=== PATIENT | female | born 1940 | race Caucasian/White ===

== ENCOUNTER → 2018-02-20 10:18 | Outpatient (CLI) | payer MEDICARE, OTHER, SELFPAY ==
--- NOTE | 2018-02-20 | DI.MRI.S_ITS ---
PROCEDURE: MR CERVICAL SPINE WO CON INDICATIONS: neck pain TECHNIQUE: Noncontrast sagittal T1 spin echo and T2 fast spin echo, sagittal STIR, foraminal oblique sagittal T2 fast spin echo, and axial gradient echo or T2 fast spin echo through the cervical spine. COMPARISON: None. FINDINGS: Image quality: Excellent. Alignment and Curvature: There is loss of normal cervical lordosis. There is moderate reactive signal within the endplates adjacent to the C4-C5, C5-C6, and C6-C7 intervertebral discs. Bone Marrow: Marrow demonstrates normal overall signal. Spinal Cord: Visualized spinal cord has normal size and signal. No cerebellar tonsillar herniation. Paraspinous Soft Tissues: No paravertebral masses. Prevertebral soft tissues are normal in thickness. C2-C3: Disc desiccation and diffuse disc bulge. Bilateral facet and uncovertebral hypertrophy. Mild canal stenosis. Moderate left and mild right foraminal stenosis. C3-C4: Congenital canal stenosis. Disc desiccation and diffuse disc bulge. Bilateral facet and uncovertebral hypertrophy. Mild canal stenosis. Mild foraminal stenosis bilaterally. C4-C5: Congenital canal stenosis. Disc height loss and desiccation, as well as diffuse disc bulge, with superimposed right far lateral protrusion/osteophyte. Bilateral facet and uncovertebral hypertrophy. There is overall moderate to severe canal stenosis with minimal anterior cord flattening. Severe right greater than left foraminal stenosis is present. C5-C6: Congenital canal stenosis. Disc desiccation and diffuse disc bulge with superimposed left posterolateral protrusion. Bilateral facet and uncovertebral hypertrophy. Moderate canal stenosis. Minimal left cord flattening. Severe bilateral foraminal stenosis. C6-C7: Congenital canal stenosis. Disc desiccation and diffuse disc bulge with superimposed left far lateral protrusion. Bilateral facet and uncovertebral hypertrophy. Moderate canal stenosis. Severe left and mild right foraminal stenosis. C7-T1: Disc desiccation and diffuse disc bulge with superimposed small central protrusion. Bilateral facet hypertrophy. Mild canal stenosis. Mild foraminal stenosis bilaterally. IMPRESSION: 1. Diffuse congenital canal stenosis, with superimposed disc and facet disease, as well as uncovertebral hypertrophy. 2. Multilevel canal stenoses, worst at C4-C5 and C5-C6, where there is mild cord flattening present. 3. Multilevel foraminal stenoses, worst at C4-C5 on the right, at C5-C6 bilaterally, and at C6-C7 on the left. Dictated by: Ronan Alfaro M.D. on 02/20/2018 at 13:00 Approved by: Ronan Alfaro M.D. on 02/20/2018 at 13:05
== END ==
PROVIDERS: Family Provider Family Medicine; PCP Family Medicine; Visit Provider Orthopaedic Surgery
DX: M48.02 Spinal stenosis, cervical region (principal); M50.91 Cervical disc disorder, unspecified, high cervical region
CPT/HCPCS: 72141

== ENCOUNTER → 2018-04-09 10:20 | Outpatient (CLI) | payer MEDICARE, OTHER, SELFPAY ==
[2018-04-09 11:53] LABS: BUN Creatinine Ratio 21.3 (6-22); Blood Urea Nitrogen 17 mg/dL (7-17); Estimated Glomerular Filt Rate > 60.0 mL/min (>60)
== END ==
PROVIDERS: Family Provider Family Medicine; PCP Family Medicine; Visit Provider Urology
DX: N28.89 Other specified disorders of kidney and ureter (principal)
CPT/HCPCS: 36415; 82565; 84520

== ENCOUNTER → 2018-04-13 11:12 | Outpatient (CLI) | payer MEDICARE, OTHER, SELFPAY ==
--- NOTE | 2018-04-13 11:46 | DI.CT.S_ITS ---
PROCEDURE: CT ABDOMEN WO/W CON INDICATIONS: RENAL MASS TECHNIQUE: Optional 5 mm thick noncontrast images acquired from the diaphragm to the iliac crests. After the administration of intravenous contrast, 5 mm thick images again acquired from the diaphragm to the iliac crests in the arterial and urographic phases. 5 mm thick coronal and sagittal reformats were then acquired. For radiation dose reduction, the following was used: automated exposure control, adjustment of mA and/or kV according to patient size. COMPARISON: [facility], CT, ABDOMEN/PELVIS WITH CONTRAST, 12/09/2016, 2:00. [facility], US, RENAL COMPLETE, 07/25/2017, 7:29. FINDINGS: Image quality: Excellent. Lung bases: Lung shows bibasilar atelectasis. Heart size is normal. Small hiatal hernia. Genitourinary: There is a 1.4 x 1.7 cm exophytic hypodense mass in the lateral margin of the left kidney at the interpolar level. This is unchanged from the prior CT exam, not mentioned on the ultrasound study. It shows unenhanced attenuation of -74. 3 small cortical hypodensities in the right kidney, 2 lateral and one medial, also unchanged and hyperechoic on ultrasound. The dominant lesion is a cortical hypodense mass in the anterolateral lower pole of the right kidney. This measures 1.6 x 1.6 cm which is unchanged from prior CT it shows precontrast attenuation of -62 and was hyperechoic on ultrasound. Neither kidney shows nephrolithiasis. Following IV contrast, the larger lesion in the left kidney shows attenuation -59 and the right lower pole mass shows attenuation of -39. Both kidneys show additional tiny cortical hypodensities that are too small to characterize Other solid organs: Liver is normal in size and enhancement. Gallbladder is surgically absent. Biliary system is non dilated. Pancreas enhances normally. Spleen is normal in size and enhancement. No adrenal nodules. Peritoneum and bowel: Unenhanced bowel loops are normal in wall thickness and caliber. No free fluid or air. Nodes and vessels: No retroperitoneal or mesenteric adenopathy by size criteria. Aorta and inferior vena cava are normal in caliber. Bones: No suspicious bony lesions. No vertebral body compression fractures. Miscellaneous: No ventral hernias. IMPRESSION: 1. 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 Multiple additional small cortical lesions are likely additional angiomyolipomas or cortical cysts. 2. Small hiatal hernia. 3. Status post cholecystectomy. Normal common bile duct. Dictated by: Luiz Ortega M.D. on 04/13/2018 at 14:27 Approved by: Luiz Ortega M.D. on 04/13/2018 at 14:45
== END ==
PROVIDERS: Family Provider Family Medicine; PCP Family Medicine; Visit Provider Urology
DX: D17.71 Benign lipomatous neoplasm of kidney (principal); K44.9 Diaphragmatic hernia without obstruction or gangrene; Z90.49 Acquired absence of other specified parts of digestive tract
CPT/HCPCS: 74170; Q9967

== ENCOUNTER → 2018-05-14 12:36 | Outpatient (CLI) | payer MEDICARE, OTHER, SELFPAY ==
--- NOTE | 2018-05-14 12:37 | DI.US.S_ITS ---
PROCEDURE: US SOFT TISSUE HEAD AND NECK INDICATIONS: mass on neck TECHNIQUE: Real-time scanning was performed of the neck region of interest, with image documentation. COMPARISON: None. FINDINGS: A cluster of rounded, hypoechoic filling defects seen in the right submandibular gland region show an overall segment of 0.5 x 1.2 x 1.5 cm. The largest filling defect in the center of the cluster is 6 x 6 mm in size and has blood flow in the margin. IMPRESSION: Cluster of rounded hypodense filling defects in the right submandibular gland are indeterminate, chronic and presumed stable by history. This could be further evaluated by contrast-enhanced CT imaging of the soft tissues neck as clinically indicated. Dictated by: Luiz Ortega M.D. on 05/14/2018 at 16:39 Approved by: Luiz Ortega M.D. on 05/14/2018 at 16:43
== END ==
PROVIDERS: Family Provider Family Medicine; PCP Family Medicine; Visit Provider Family Medicine
DX: R22.1 Localized swelling, mass and lump, neck (principal)
CPT/HCPCS: 76536

== ENCOUNTER → 2018-07-24 12:41 | Outpatient (CLI) | payer MEDICARE, OTHER, SELFPAY ==
[2018-07-24 12:59] LABS: Hemoglobin 13.9 g/dL (12.0-16.0); Mean Corpuscular Hemoglobin 31.5 PG (26-34); Mean Corpuscular Volume 92.7 fL (80-100); Platelet Count 270 X10^3/uL (150-400); Red Blood Cell Count 4.42 X10^6/uL (4.0-5.2); Red Cell Distribution Width 13.2 % (11.6-14.8)
[2018-07-24 13:08] LABS: Alanine Aminotransferase 24 IU/L (9-52); Albumin 4.3 g/dL (3.5-5.0); Albumin Globulin Ratio 1.5 (1.0-2.8); Alkaline Phosphatase 84 U/L (38-126); Aspartate Aminotransferase 20 IU/L (14-36); Bilirubin Total 0.6 mg/dL (0.2-1.3); Blood Urea Nitrogen 18 mg/dL (7-17); Calcium 9.3 mg/dL (8.4-10.2); Carbon Dioxide 30 mmol/L (22-32); Chloride 103 mmol/L (98-107); Cholesterol 149 mg/dL (140-199); Estimated Glomerular Filt Rate > 60.0 mL/min (>60); Globulin 2.8 g/dL (1.7-4.1); Glucose 104 mg/dL (80-110); HDL Cholesterol 31 mg/dL (40-60); HEMOLYSIS < 15 (0-50); LDL Cholesterol Calculated 86 mg/dL (<100); Potassium 5.2 mmol/L (3.4-5.1); Sodium 144 mmol/L (137-145); Total Protein 7.1 g/dL (6.3-8.2); Triglycerides 162 mg/dL (35-150)
[2018-07-24 13:52] LABS: Thyroid Stimulating Hormone 1.16 uIU/mL (0.47-4.68)
[2018-07-24 15:55] LABS: Bilirubin Urine UA NEGATIVE (NEGATIVE); Color Urine UA YELLOW; Glucose Urine UA NEGATIVE (Normal); Ketones Urine UA NEGATIVE (NEGATIVE); Leukocyte Esterase Urine UA 1+ (NEGATIVE); Nitrite Urine UA NEGATIVE (Negative); Occult Blood Urine UA 2+ (Negative); Protein Urine UA NEGATIVE (Negative); Urobilinogen Urine UA 0.2 E.U./dL (0.2)
[2018-07-24 16:12] LABS: Amorphous Sediment Urine 1+; Appearance Urine UA Slightly Cloudy; RBC Urine 1-5/HPF (0-5/HPF); Squamous Epithelial Cell Urine 1-5 /HPF; Transitional Epi Cells Urine 0-1/HPF (0-5/HPF); WBC Urine 5-10/HPF (0-5/HPF)
[2018-07-24 16:13] LABS: Bacteria Urine Few (2-10); Culture Indicated Urine Specimen Cultured; Mucus Urine 1+ (Negative)
== END ==
PROVIDERS: PCP Family Medicine; Visit Provider Family Medicine
DX: E78.2 Mixed hyperlipidemia (principal); I10 Essential (primary) hypertension; I25.10 Atherosclerotic heart disease of native coronary artery without angina pectoris; I48.2 Chronic atrial fibrillation; Z51.81 Encounter for therapeutic drug level monitoring; Z79.01 Long term (current) use of anticoagulants
CPT/HCPCS: 36415; 80053; 80061; 81001; 84443; 85027; 87086

== ENCOUNTER → 2019-01-18 16:43 | Outpatient (CLI) | payer MEDICARE, OTHER, SELFPAY ==
--- NOTE | 2019-01-18 16:44 | DI.US.S_ITS ---
PROCEDURE: US RENAL COMPLETE INDICATIONS: RENAL MASS TECHNIQUE: Real-time scanning was performed of the kidneys and bladder, with image documentation. COMPARISON: [facility], US, RENAL COMPLETE, 07/25/2017, 7:29. [facility], CT, CT ABDOMEN WO/W CON, 04/13/2018, 11:21. FINDINGS: Kidneys: Kidneys are normal in size. Right kidney measures 11.0 cm long; left kidney measures 10.7 cm long. Right renal cortical thickness is 1.3 cm; left renal cortical thickness is 1.4 cm. Renal cortical echotexture is normal. No hydronephrosis or nephrolithiasis. Multiple rounded echogenic foci again seen above the right kidney, largest measuring 2.4 x 2.2 x 2.0 cm. Echogenic focus also present involving the mid aspect of the left kidney measuring 1.9 x 1.7 x 2.3 cm. Bladder: Pre-void bladder volume is 127 mL. Post-void residual is 87 mL. Pre-void images demonstrate no intraluminal masses or stones. On pre-void images, right ureteral jets are noted with color Doppler interrogation. (Of note, ureteral jets may not be detectable in up to 25% of cases due to insufficient differences in specific gravity between ureteral and bladder urine). Miscellaneous: No free pelvic fluid. IMPRESSION: 1. Cortical echogenic masses redemonstrated bilaterally similar to prior CT scan likely representing angiomyolipomas. Dictated by: Lawrence MADISON Interpreted: Braydon Zacarias MD on 01/19/2019 at 10:10 Approved by: Braydon Zacarias M.D. on 01/19/2019 at 11:17
== END ==
PROVIDERS: Family Provider Family Medicine; PCP Family Medicine; Visit Provider Urology
DX: N28.89 Other specified disorders of kidney and ureter (principal)
CPT/HCPCS: 76770

== ENCOUNTER → 2019-03-05 08:38 | Outpatient (CLI) | payer MEDICARE, OTHER, SELFPAY ==
[2019-03-05 09:26] LABS: Alanine Aminotransferase 12 IU/L (9-52); Albumin 3.7 g/dL (3.5-5.0); Albumin Globulin Ratio 1.4 (1.0-2.8); Alkaline Phosphatase 74 U/L (38-126); Aspartate Aminotransferase 15 IU/L (14-36); Bilirubin Total 0.6 mg/dL (0.2-1.3); Blood Urea Nitrogen 16 mg/dL (7-17); Calcium 9.2 mg/dL (8.4-10.2); Carbon Dioxide 31 mmol/L (22-32); Chloride 102 mmol/L (98-107); Cholesterol 149 mg/dL (140-199); Estimated Glomerular Filt Rate > 60.0 mL/min (>60); Globulin 2.6 g/dL (1.7-4.1); Glucose 100 mg/dL (80-110); HDL Cholesterol 30 mg/dL (40-60); HEMOLYSIS < 15 (0-50); LDL Cholesterol Calculated 84 mg/dL (<100); Potassium 3.8 mmol/L (3.4-5.1); Sodium 139 mmol/L (137-145); Total Protein 6.3 g/dL (6.3-8.2); Triglycerides 174 mg/dL (35-150)
== END ==
PROVIDERS: PCP Family Medicine; Visit Provider Family Medicine
DX: E78.2 Mixed hyperlipidemia (principal); I10 Essential (primary) hypertension
CPT/HCPCS: 36415; 80053; 80061

== ENCOUNTER → 2019-05-04 09:32 | Outpatient (CLI) | payer MEDICARE, OTHER, SELFPAY ==
[2019-05-06 14:20] LABS: Fecal Immunochemical Test NOT DETECTED (NOT DETECTED)
== END ==
PROVIDERS: PCP Family Medicine; Visit Provider Family Medicine
DX: Z12.11 Encounter for screening for malignant neoplasm of colon (principal)
CPT/HCPCS: 82274

== ENCOUNTER → 2019-07-12 10:43 | Outpatient (CLI) | payer MEDICARE, OTHER, SELFPAY ==
--- NOTE | 2019-07-12 | DI.US.S_ITS ---
PROCEDURE: US RENAL COMPLETE INDICATIONS: ANGIOMYOLIPOMAS TECHNIQUE: Real-time scanning was performed of the kidneys and bladder, with image documentation. COMPARISON: [facility], , US RENAL COMPLETE, 01/18/2019, 16:58. FINDINGS: Kidneys: Kidneys are normal in size. Right kidney measures 10.5 cm long; left kidney measures 11.3 cm long. Right renal cortical thickness is one point there cm; left renal cortical thickness is 1.2 cm. Renal cortical echotexture is normal. No hydronephrosis or nephrolithiasis. Accounting for differences in imaging technique, stable sonographic appearance of echogenic renal masses compatible with angiomyolipomas. On the right, there is a 0.7 x 0.7 x 0.7 cm mid renal echogenic mass and a 2.4 x 2.3 x 1.9 cm inferior right renal echogenic mass. On the left, there is a 2.1 x 2.0 x 2.2 cm echogenic mass involving the mid/medial aspect of the left kidney. No new masses are identified. Bladder: Pre-void bladder volume is 282 mL. Post-void residual is 219 mL. Pre-void images demonstrate no intraluminal masses or stones. On pre-void images, the bilateral ureteral jets were not noted with color Doppler interrogation. (Of note, ureteral jets may not be detectable in up to 25% of cases due to insufficient differences in specific gravity between ureteral and bladder urine). Miscellaneous: No free pelvic fluid. IMPRESSION: Accounting for slight differences in imaging technique, stable appearance and size of cortical bilateral echogenic renal masses likely representing angiomyolipomas with 2 noted on the right and one on the left. Dictated by: Joe Chow M.D. on 07/12/2019 at 13:34 Approved by: Joe Chow M.D. on 07/12/2019 at 13:49
== END ==
PROVIDERS: PCP Family Medicine; Visit Provider Urology
DX: D17.71 Benign lipomatous neoplasm of kidney (principal)
CPT/HCPCS: 76770

== ENCOUNTER → 2019-10-06 09:34 | Outpatient (CLI) | payer MEDICARE, OTHER, SELFPAY ==
[2019-10-06 10:20] LABS: Add Manual Diff / Slide Review NO; Basophils Absolute Auto 100 /uL (0-100); Basophils Percent Auto 0.8 % (0-2); Eosinophils Absolute Auto 300 /uL (0-450); Eosinophils Percent Auto 4.7 % (2-4); Hematocrit 39.5 % (36-46); Hemoglobin 13.4 g/dL (12.0-16.0); Lymphocytes Absolute Auto 2000 /uL (1100-4500); Lymphocytes Percent Auto 28.7 % (25-40); Mean Corpuscular HGB Conc 33.9 % (30-36); Mean Corpuscular Hemoglobin 31.7 PG (26-34); Mean Corpuscular Volume 93.3 fL (80-100); Monocytes Absolute Auto 400 /uL (0-900); Monocytes Percent Auto 5.3 % (3-14); Neutrophils Absolute Auto 4300 /uL (1500-7000); Neutrophils Percent Auto 60.5 % (50-75); Platelet Count 278 X10^3/uL (150-400); Red Blood Cell Count 4.23 X10^6/uL (4.0-5.2); Red Cell Distribution Width 13.5 % (11.6-14.8); White Blood Cell Count 7.1 X10^3/uL (4.5-11.0)
[2019-10-06 10:34] LABS: Alanine Aminotransferase 13 IU/L (<35); Albumin Globulin Ratio 1.3 (1.0-2.8); Alkaline Phosphatase 74 U/L (38-126); Aspartate Aminotransferase 21 IU/L (14-36); BUN Creatinine Ratio 17.5 (6-22); Bilirubin Total 0.6 mg/dL (0.2-1.3); Blood Urea Nitrogen 14 mg/dL (7-17); Calcium 9.4 mg/dL (8.4-10.2); Carbon Dioxide 30 mmol/L (22-32); Chloride 106 mmol/L (98-107); Estimated Glomerular Filt Rate > 60.0 mL/min (>60); Glucose 97 mg/dL (80-110); HEMOLYSIS < 15 (0-50); Lipase 125 U/L (23-300); Potassium 4.3 mmol/L (3.4-5.1); Sodium 141 mmol/L (137-145)
[2019-10-06 11:05] LABS: Thyroid Stimulating Hormone 1.49 uIU/mL (0.47-4.68)
[2019-10-06 12:08] LABS: Appearance Urine UA SL CLOUDY; Bilirubin Urine UA NEGATIVE (NEGATIVE); Color Urine UA YELLOW; Glucose Urine UA NEGATIVE (Negative); Ketones Urine UA NEGATIVE (NEGATIVE); Leukocyte Esterase Urine UA 1+ (NEGATIVE); Nitrite Urine UA POSITIVE (Negative); Occult Blood Urine UA 3+ (Negative); Protein Urine UA NEGATIVE (Negative); Specific Gravity Urine UA 1.025 (1.000-1.035); Urobilinogen Urine UA 0.2 E.U./dL (0.2)
[2019-10-06 12:09] LABS: pH Urine UA 5.5 (4.5-8.0)
[2019-10-06 12:15] LABS: Bacteria Urine Many (>30); Culture Indicated Urine Cult Not Indicated; RBC Urine 5-10/HPF (0-5/HPF); Squamous Epithelial Cell Urine 5-10 /HPF (0-5/HPF); WBC Urine 5-10/HPF (0-5/HPF)
== END ==
PROVIDERS: PCP Family Medicine; Visit Provider Family Medicine
DX: Z51.81 Encounter for therapeutic drug level monitoring (principal); E78.2 Mixed hyperlipidemia; I10 Essential (primary) hypertension
CPT/HCPCS: 36415; 80053; 81003; 81015; 83690; 84443; 85025

== ENCOUNTER → 2019-10-18 10:54 | Outpatient (CLI) | payer MEDICARE, OTHER, SELFPAY ==
[2019-10-18 13:11] LABS: Appearance Urine UA CLEAR; Bilirubin Urine UA NEGATIVE (NEGATIVE); Color Urine UA YELLOW; Glucose Urine UA NEGATIVE (Negative); Ketones Urine UA NEGATIVE (NEGATIVE); Leukocyte Esterase Urine UA TRACE (NEGATIVE); Nitrite Urine UA POSITIVE (Negative); Occult Blood Urine UA 2+ (Negative); Protein Urine UA NEGATIVE (Negative); Urobilinogen Urine UA 0.2 E.U./dL (0.2)
[2019-10-18 13:56] LABS: RBC Urine 1-5/HPF (0-5/HPF); Squamous Epithelial Cell Urine 1-5 /HPF (0-5/HPF); WBC Urine 5-10/HPF (0-5/HPF)
[2019-10-18 13:57] LABS: Amorphous Sediment Urine 1+; Bacteria Urine Few (2-10); Culture Indicated Urine Specimen Cultured; Mucus Urine 1+ (Negative)
== END ==
PROVIDERS: PCP Family Medicine; Visit Provider Family Medicine
DX: N39.0 Urinary tract infection, site not specified (principal)
CPT/HCPCS: 81003; 81015; 87077; 87086; 87186

== ENCOUNTER → 2020-01-07 11:05 | Outpatient (CLI) | payer MEDICARE, OTHER, SELFPAY ==
--- NOTE | 2020-01-07 11:28 | DI.RAD.S_ITS ---
PROCEDURE: XR CHEST 2V INDICATIONS: productive cough TECHNIQUE: 2 views of the chest were acquired. COMPARISON: [facility], CHEST 2 VIEW, 01/27/2017, 10:27. [facility], CHEST 1 VIEW, 07/16/2015, 4:26. FINDINGS: Surgical changes and devices: None. Lungs and pleura: Lungs are clear. No pleural effusions or pneumothorax. Mediastinum: Mediastinal contours are normal. Heart size is normal. Bones and chest wall: No suspicious bony abnormalities. Soft tissues appear unremarkable. IMPRESSION: Normal for age, source of current productive cough symptoms is not seen. Dictated by: Kenroy Patterson M.D. on 01/07/2020 at 13:57 Approved by: Kenroy Patterson M.D. on 01/07/2020 at 13:57
[2020-01-07 12:21] LABS: Appearance Urine UA CLOUDY; Bilirubin Urine UA NEGATIVE (NEGATIVE); Color Urine UA YELLOW; Glucose Urine UA NEGATIVE (Negative); Ketones Urine UA NEGATIVE (NEGATIVE); Leukocyte Esterase Urine UA 2+ (NEGATIVE); Nitrite Urine UA NEGATIVE (Negative); Occult Blood Urine UA 3+ (Negative); Protein Urine UA NEGATIVE (Negative); Specific Gravity Urine UA <=1.005 (1.000-1.035); Urobilinogen Urine UA 0.2 E.U./dL (0.2)
[2020-01-07 12:24] LABS: pH Urine UA 6.5 (4.5-8.0)
[2020-01-07 13:43] LABS: Bacteria Urine Many (>30); RBC Urine 1-5/HPF (0-5/HPF); Squamous Epithelial Cell Urine 1-5 /HPF (0-5/HPF); WBC Urine >100/HPF (0-5/HPF)
[2020-01-07 13:44] LABS: Culture Indicated Urine Specimen Cultured
== END ==
PROVIDERS: PCP Family Medicine; Referring Provider Nurse Practitioner; Visit Provider Nurse Practitioner
DX: N94.9 Unspecified condition associated with female genital organs and menstrual cycle (principal); R05 Cough; R30.0 Dysuria
CPT/HCPCS: 71046; 81001; 87077; 87086; 87186; 87210

== ENCOUNTER → 2020-01-31 09:56 | Outpatient (CLI) | payer MEDICARE, OTHER, SELFPAY ==
[2020-02-02 04:31] LABS: COVID19 Sendout Not Detected (Not Detected)
== END ==
PROVIDERS: PCP Family Medicine; Visit Provider Registered Nurse
DX: R05 Cough (principal)
CPT/HCPCS: 87635

== ENCOUNTER → 2020-06-10 08:12 | Outpatient (CLI) | payer MEDICARE, OTHER, SELFPAY ==
[2020-06-10 09:46] LABS: Add Manual Diff / Slide Review NO; Basophils Absolute Auto 0 /uL (0-100); Basophils Percent Auto 0.6 % (0-2); Eosinophils Absolute Auto 300 /uL (0-450); Eosinophils Percent Auto 4.8 % (2-4); Hematocrit 39.7 % (36-46); Hemoglobin 13.3 g/dL (12.0-16.0); Lymphocytes Absolute Auto 1900 /uL (1100-4500); Lymphocytes Percent Auto 28.7 % (25-40); Mean Corpuscular HGB Conc 33.5 % (30-36); Mean Corpuscular Hemoglobin 30.9 PG (26-34); Mean Corpuscular Volume 92.3 fL (80-100); Monocytes Absolute Auto 400 /uL (0-900); Monocytes Percent Auto 6.6 % (3-14); Neutrophils Absolute Auto 3900 /uL (1500-7000); Neutrophils Percent Auto 59.3 % (50-75); Platelet Count 264 X10^3/uL (150-400); Red Cell Distribution Width 13.5 % (11.6-14.8); White Blood Cell Count 6.6 X10^3/uL (4.5-11.0)
[2020-06-10 09:57] LABS: Hemoglobin A1C% w Est Avg Glu 5.7 % (4.0-6.0)
[2020-06-10 09:59] LABS: Alanine Aminotransferase 14 IU/L (<35); Albumin 3.9 g/dL (3.5-5.0); Albumin Globulin Ratio 1.3 (1.0-2.8); Alkaline Phosphatase 83 U/L (38-126); Aspartate Aminotransferase 25 IU/L (14-36); BUN Creatinine Ratio 18.5 (6-22); Bilirubin Total 0.6 mg/dL (0.2-1.3); Blood Urea Nitrogen 15 mg/dL (7-17); Calcium 9.1 mg/dL (8.4-10.2); Carbon Dioxide 32 mmol/L (22-32); Chloride 103 mmol/L (98-107); Cholesterol 145 mg/dL (140-199); Estimated Glomerular Filt Rate > 60.0 mL/min (>60); Globulin 2.9 g/dL (1.7-4.1); Glucose 101 mg/dL (80-110); HDL Cholesterol 30 mg/dL (40-60); HEMOLYSIS < 15 (0-50); LDL Cholesterol Calculated 91 mg/dL (<100); Sodium 141 mmol/L (137-145); Total Protein 6.8 g/dL (6.3-8.2); Triglycerides 122 mg/dL (35-150)
[2020-06-10 10:23] LABS: TSH w/ Reflex to FT4 0.93 uIU/mL (0.47-4.68)
== END ==
PROVIDERS: PCP Family Medicine; Referring Provider Family Medicine; Visit Provider Family Medicine
DX: B37.9 Candidiasis, unspecified (principal); F03.90 Unspecified dementia, unspecified severity, without behavioral disturbance, psychotic disturbance, mood disturbance, and anxiety; E78.2 Mixed hyperlipidemia; Z79.899 Other long term (current) drug therapy
CPT/HCPCS: 36415; 80053; 80061; 83036; 84443; 85025

== ENCOUNTER → 2020-09-08 14:42 | Outpatient (CLI) | payer MEDICARE, OTHER, SELFPAY ==
--- NOTE | 2020-09-08 14:46 | DI.US.S_ITS ---
PROCEDURE: US RENAL COMPLETE INDICATIONS: Benign lipomatous neoplasm of kidney TECHNIQUE: Real-time scanning was performed of the kidneys and bladder, with image documentation. COMPARISON: [facility], CT, ABDOMEN/PELVIS WITH CONTRAST, 12/09/2016, 2:00. [facility], CT, CT ABDOMEN WO/W CON, 04/13/2018, 11:21. [facility], US, US RENAL COMPLETE, 07/12/2019, 11:12. [facility], US, US RENAL COMPLETE, 01/18/2019, 16:58. FINDINGS: Kidneys: Kidneys are normal in size. Right kidney measures 11.2 cm long; left kidney measures 10.7 cm long. Right renal cortical thickness is 1.7 cm; left renal cortical thickness is 1.5 cm. Renal cortical echotexture is normal. No hydronephrosis or nephrolithiasis. A couple of echogenic masses are again seen in right kidney, 1 in the mid zone measuring 1.4 x 1.3 x 0.9 cm (previously 0.7 x 0.7 x 0.7 cm) and 1 in the inferior pole measuring 2.6 x 1.9 x 2.3 cm (previously 2.4 x 2.3 x 1.9 cm). In the left kidney, there is a 2.2 x 1.8 x 2.3 cm echogenic mass in the mid zone (previously 2.1 x 2.0 x 2.2 cm). Bladder: Pre-void bladder volume is 257 mL. The patient was unable to void. Pre-void images demonstrate no intraluminal masses or stones. On pre-void images, neither ureteral jets are noted with color Doppler interrogation. (Of note, ureteral jets may not be detectable in up to 25% of cases due to insufficient differences in specific gravity between ureteral and bladder urine). Miscellaneous: No free pelvic fluid. IMPRESSION: 1. Three echogenic masses are again identified in kidneys, 2 in right kidney and 1 in left kidney. The smaller mid zone right kidney lesion is slightly enlarged since the last exam on 07/12/2019. A short interval follow-up ultrasound imaging or CT with contrast is suggested. The other larger lesions are stable. Morphologically, these lesions are most likely angiomyolipomas. Dictated by: Ke Escoto M.D. on 09/08/2020 at 17:15 Approved by: Ke Escoto M.D. on 09/08/2020 at 17:24
== END ==
PROVIDERS: PCP Family Medicine; Referring Provider Urology; Visit Provider Urology
DX: D17.71 Benign lipomatous neoplasm of kidney (principal)
CPT/HCPCS: 76770

== ENCOUNTER → 2020-10-02 11:40 | Outpatient (CLI) | payer MEDICARE, OTHER, SELFPAY ==
--- NOTE | 2020-10-02 11:42 | DI.CT.S_ITS ---
PROCEDURE: CT SINUS W CON INDICATIONS: Other diseases of pharynx TECHNIQUE: After the administration of intravenous contrast, 3.0 mm axial images acquired from the frontal sinuses to the mid-sella, with coronal and sagittal reformats. For radiation dose reduction, the following was used: automated exposure control, adjustment of mA and/or kV according to patient size. COMPARISON: [facility], CT, HEAD WITHOUT CONTRAST, 07/16/2015, 4:41. FINDINGS: Image quality: Diagnostic, with note made of motion artifact. There is artifact associated with the metallic hardware. Artifact from the metallic hardware is reduced by metal reconstruction algorithm. Maxillary Sinuses: No bony remodeling or destruction. Sinuses are clear. Ethmoid Air Cells: No bony remodeling or destruction. Sinuses are clear. Sphenoid Sinuses: No bony remodeling or destruction. Sinuses are clear. Frontal Sinuses: No bony remodeling or destruction. Sinuses are clear. Ostiomeatal Complexes: Ostiomeatal complexes are patent, yet there constitutionally narrowed, with bilateral infraorbital septations. Miscellaneous: Visualized intra-orbital contents are normal. No davion bullosa. No nasal septal deviation. Cervical spine degenerative changes are partially seen. IMPRESSION: No masses are identified. The ostiomeatal complexes are constitutionally narrowed. Dictated by: Agustín Mckinney M.D. on 10/02/2020 at 14:12 Approved by: Agustín Mckinney M.D. on 10/02/2020 at 14:14
[2020-10-02 14:08] LABS: BUN Creatinine Ratio 19.7 (6-22); Blood Urea Nitrogen 14 mg/dL (7-17); Estimated Glomerular Filt Rate > 60.0 mL/min (>60)
== END ==
PROVIDERS: PCP Family Medicine; Referring Provider Otolaryngology; Visit Provider Otolaryngology
DX: J39.2 Other diseases of pharynx (principal); J32.3 Chronic sphenoidal sinusitis
CPT/HCPCS: 36415; 70487; 82565; 84520

== ENCOUNTER 2021-04-01 11:17 | Emergency (ER) | payer MEDICARE, OTHER, SELFPAY ==
[2021-04-01 11:30] VITALS: BP 142/67; PULSE 60; PULSE 62; RESP 17; TEMP 36.6; O2SAT 96; O2SAT 97; BMI 26.4
[2021-04-01 12:00] VITALS: PULSE 67; O2SAT 96
[2021-04-01 12:01] VITALS: BP 146/73; PULSE 64; O2SAT 97
--- NOTE | 2021-04-01 12:09 | ED.FALL ---
HPI - Fall General Chief Complaint: Fall Stated Complaint: fell wed and hurt right side ribs Time Seen by Provider: 04/01/21 12:03 Source: family Mode of arrival: Ambulatory History of Present Illness HPI Narrative: Patient is a 80-year-old female presents with right rib pain. She does have history of dementia here with who is primary historian. He says that a few nights ago she tripped over a dog bed. Pain is progressively gotten worse. She has not taken anything for pain. She did not hit her head or lose consciousness. She is not short of breath. No pelvic pain. she is ambulatory but is requiring 's assistance secondary to pain. Related Data Home Medications Medication Instructions Recorded Confirmed cholecalciferol (vitamin D3) PO 10/11/19 06/09/20 Previous Rx's Medication Instructions Recorded albuterol sulfate 90 mcg/actuation 1 - 2 puff INH Q4HP PRN #6.7 gm 03/07/17 aerosol inhaler (Proventil HFA) aspirin 81 mg chewable tablet 81 mg PO QDAY #30 ctb 03/07/17 hydrocortisone 2.5 % topical cream 1 applictn IA BID-QID PRN #30 gram 12/20/19 with perineal applicator (Anusol-HC) clobetasol 0.05 % topical ointment 1 applictn TOP BEDTIME #60 gram 01/07/20 atorvastatin 10 mg tablet (Lipitor) 10 mg PO HS #90 tab 06/05/20 lisinopril 2.5 mg tablet 2.5 mg PO Q DAY #90 tab 06/05/20 terconazole 0.8 % vaginal cream 5 gram VAG BEDTIME 3 Days #20 gram 06/09/20 donepezil 10 mg tablet 10 mg PO BEDTIME #90 tab 11/19/20 diltiazem HCl 120 mg 120 mg PO QDAY #90 tab 02/15/21 capsule,extended release 24 hr Allergies Allergy/AdvReac Type Severity Reaction Status Date / Time Penicillins [PENICILLINS] Allergy Mild ITCHING Verified 06/09/20 14:31 latex [LATEX] Allergy Unknown Verified 06/09/20 14:31 shellfish derived Allergy Unknown SPOUSE Verified 06/09/20 14:31 [SHELLFISH DERIVED] STATES N/V WITH TUNA venom-honey bee Allergy Unknown Verified 09/18/20 14:31 [BEE VENOM (HONEY BEE)] seafood Allergy Unknown Uncoded 06/09/20 14:31 Review of Systems Review of Systems Narrative: GENERAL: Denies chills, fatigue, malaise, fever, sweats, travel HEENT: Denies sinus pain, ear pain, sore throat, difficulty swallowing, neck pain RESPIRATORY: Right-sided rib pain see HPI CARDIOVASCULAR: Denies chest pain, palpitations, orthopnea, edema GASTROINTESTINAL: Denies nausea, vomiting, abdominal pain, diarrhea, constipation, melena. : Denies dysuria, frequency, incontinence, hematuria, urinary retention, flank pain. MUSCULOSKELETAL: Denies weakness, joint pain, or bony pain SKIN: No rash, no erythema, no pruritus NEUROLOGIC: Denies weakness, dizziness, headache, numbness, change in speech, confusion PSYCHIATRIC: No concerning psychosocial issues. 12 point review of systems is negative except for those stated above and HPI Patient History Medical History (Updated 04/01/21 @ 13:04 by Katherine Khanna DO) Alzheimer disease (~2015) Asthma (Unknown) Atrial fibrillation (~06/2015) Coronary artery disease (~2006) Diverticular disease (Unknown) External hemorrhoid GERD (gastroesophageal reflux disease) (Unknown) GI bleed (~11/2016) Hx of transient ischemic attack (TIA) (~2005) Hyperlipemia (Unknown) Hypertension (Unknown) Labial lesion Lichen sclerosus Microscopic colitis (Unknown) Renal cyst (12/2016) Surgical History Hx of cholecystectomy (Unknown) Hx of hysterectomy (~1989) Hx of tonsillectomy (Unknown) Family History (Updated 04/22/18 @ 09:36 by Jacklyn Oseguera LPN) Father Cancer Social History Smoking Status: Never smoker Smoking Status: Never smoker Substance Use Type: does not use Exam Initial Vital Signs Initial Vital Signs: Vital Signs Temperature 97.9 F 04/01/21 11:30 Pulse Rate 60 04/01/21 11:30 Respiratory Rate 17 04/01/21 11:30 Blood Pressure 142/67 H 04/01/21 11:30 Pulse Oximetry 96 04/01/21 11:30 GENERAL: Alert pleasant 80-year-old female does not appear in acute distress HEENT: Head atraumatic,EOMI, pupils reactive, face symmetric, moist mucous membranes NECK: No vertebral tenderness or step-offs full range of CARDIOVASCULAR: Regular rate and rhythm without murmurs, rubs or gallops. RESPIRATORY: Breath sounds equal bilaterally, no wheezes rales or rhonchi. Right-sided rib pain no paradoxical movement no trauma no abrasion a tender to touch in the right lateral side ABDOMEN: Soft, nontender. Normoactive bowel sounds all 4 quadrants. No guarding or rebound. EXTREMITIES: Normal range of motion, no clubbing or edema. Neurovascularly intact NEUROLOGICAL: Nutrition Technician strength equal bilaterally moving all extremity SKIN: Warm, dry, no laceration, no petechiae, no rashes or lesions. Course Orders Ordered: ED Orders 04/01/21 12:15 XR ribs RT min 3V w CXR1V Stat Discontinued Medications Ibuprofen (Ibuprofen 400 Mg Tablet) 400 mg PO NOW ONE Stop: 04/01/21 12:16 Last Admin: 04/01/21 12:35 Dose: 400 mg Documented by: RONA Vital Signs Vital signs: Vital Signs - 8 hr 04/01/21 11:30 04/01/21 12:00 04/01/21 12:01 Temperature 97.9 F Pulse Rate 62 67 64 Respiratory Rate 17 Blood Pressure 142/67 H 146/73 H Pulse Oximetry 97 96 97 04/01/21 12:28 04/01/21 12:30 04/01/21 13:01 Temperature Pulse Rate 53 L 54 L 51 L Respiratory Rate Blood Pressure 148/67 H 139/67 141/65 H Pulse Oximetry 98 97 99 MDM - Fall Imaging Data Chest x-ray: Radiologist's Impression: PROCEDURE: XR RIBS RT MIN 3V W CXR 1V INDICATIONS: fall pain on Friday03.28.21 TECHNIQUE: 2 views of the right ribs were acquired, along with a single view chest. COMPARISON: [facility], , XR CHEST 2V, 01/07/2020, 11:56. FINDINGS: Surgical changes and devices: Cholecystectomy clips are seen. Bones and chest wall: No fractures or dislocations. No suspicious bony lesions. Age-appropriate bony degenerative changes are seen. Overlying soft tissues appear unremarkable. Lungs and pleura: No pleural effusions or pneumothorax. Lungs appear clear. Mediastinum: Mediastinal contours appear normal. Heart size is normal. IMPRESSION: No definite displaced fractures can be seen. No pneumothorax is seen. Dictated by: Marlo MataD. on 04/01/2021 at 11:28 MDM Narrative Medical decision making narrative: Pain is better after Motrin. Recommend that she take [id number] patient's at home to help with pain. Discharge Plan Departure Patient Disposition: Home Clinical Impression: Contusion of rib on right side Instructions: DI for Rib Contusion Activity Restrictions/Additional Instructions: *You have been diagnosed with rib contusion *What to do: At this time there is no broken bowel noted on the x-ray. However it is likely bruised in this can still take a number of weeks to heal *Continue to take medications as directed Ibuprofen 400 mg every 6-8 hours if needed for [id number] Tylenol 650 mg every 4-6 hours if needed for njrk-[id number] pain *Follow up with your primary care provider in 2-3 days *Return to ER if you should have increasing pain, increasing shortness of breath or any new, worsening or concerning symptoms Prescriptions: No Action albuterol sulfate [Proventil HFA] 90 MCG/PUFF HFA aerosol inhaler 1 - 2 puff INH Q4HP PRNQty: 6.7 RF: 5 aspirin 81 MG tablet,chewable 81 mg PO QDAY Qty: 30 RF: 0 hydrocortisone [Anusol-HC] 2.5 % cream with perineal applicator 1 applictn IA BID-QID PRN (Reason: hemorrhoids) Qty: 30 RF: 1 atorvastatin [Lipitor] 10 mg tablet 10 mg PO HS Qty: 90 RF: 2 lisinopril 2.5 mg tablet 2.5 mg PO Q DAY Qty: 90 RF: 2 donepezil 10 mg tablet 10 mg PO BEDTIME Qty: 90 RF: 1 diltiazem HCl 120 mg capsule,extended release 24hr 120 mg PO QDAY Qty: 90 RF: 1 cholecalciferol (vitamin D3) PO RF: 0 clobetasol 0.05 % ointment 1 applictn TOP BEDTIME Qty: 60 RF: 1 terconazole 0.8 % cream 5 gram VAG BEDTIME 3 Days Qty: 20 RF: 1 Referrals: Marvin Sherwood, [Primary Care Provider] -
--- NOTE | 2021-04-01 12:15 | DI.RAD.S_ITS ---
PROCEDURE: XR RIBS RT MIN 3V W CXR 1V INDICATIONS: fall pain on Friday 7.7.21 TECHNIQUE: 2 views of the right ribs were acquired, along with a single view chest. COMPARISON: [facility], , XR CHEST 2V, 01/07/2020, 11:56. FINDINGS: Surgical changes and devices: Cholecystectomy clips are seen. Bones and chest wall: No fractures or dislocations. No suspicious bony lesions. Age-appropriate bony degenerative changes are seen. Overlying soft tissues appear unremarkable. Lungs and pleura: No pleural effusions or pneumothorax. Lungs appear clear. Mediastinum: Mediastinal contours appear normal. Heart size is normal. IMPRESSION: No definite displaced fractures can be seen. No pneumothorax is seen. Dictated by: Agustín Mckinney M.D. on 04/01/2021 at 11:28 Approved by: Agustín Mckinney M.D. on 04/01/2021 at 11:30
[2021-04-01 12:28] VITALS: BP 148/67; PULSE 53; O2SAT 98
[2021-04-01 12:30] VITALS: BP 139/67; PULSE 54; O2SAT 97
[2021-04-01] MEDS: IBUPROFEN 400 MG TABLET PO (12:35)
[2021-04-01 13:01] VITALS: BP 141/65; PULSE 51; O2SAT 99
== END 2021-04-01 13:19 | disposition home or self-care (01) ==
PROVIDERS: Emergency Provider Emergency Medicine; PCP Family Medicine
DX: S20.211A Contusion of right front wall of thorax, initial encounter (principal); W01.0XXA Fall on same level from slipping, tripping and stumbling without subsequent striking against object, initial encounter
CPT/HCPCS: 71101; 99283; 99284

== ENCOUNTER → 2021-09-13 09:35 | Outpatient (CLI) | payer MEDICARE, OTHER, SELFPAY ==
[2021-09-13 10:31] LABS: Add Manual Diff / Slide Review NO; Basophils Absolute Auto 0 /uL (0-100); Basophils Percent Auto 0.7 % (0-2); Eosinophils Absolute Auto 400 /uL (0-450); Eosinophils Percent Auto 5.4 % (2-4); Hematocrit 40.5 % (36-46); Hemoglobin 13.7 g/dL (12.0-16.0); Lymphocytes Absolute Auto 2200 /uL (1100-4500); Mean Corpuscular HGB Conc 33.7 % (30-36); Mean Corpuscular Hemoglobin 31.4 PG (26-34); Mean Corpuscular Volume 93.1 fL (80-100); Monocytes Absolute Auto 400 /uL (0-900); Monocytes Percent Auto 6.4 % (3-14); Neutrophils Absolute Auto 3900 /uL (1500-7000); Neutrophils Percent Auto 56.5 % (50-75); Platelet Count 268 X10^3/uL (150-400); Red Blood Cell Count 4.35 X10^6/uL (4.0-5.2); Red Cell Distribution Width 13.3 % (11.6-14.8); White Blood Cell Count 6.9 X10^3/uL (4.5-11.0)
[2021-09-13 11:19] LABS: Alanine Aminotransferase 11 IU/L (<35); Albumin Globulin Ratio 1.5 (1.0-2.8); Alkaline Phosphatase 66 U/L (38-126); Aspartate Aminotransferase 20 IU/L (14-36); BUN Creatinine Ratio 17.8 (6-22); Bilirubin Total 0.6 mg/dL (0.2-1.3); Blood Urea Nitrogen 16 mg/dL (7-17); Calcium 9.5 mg/dL (8.4-10.2); Carbon Dioxide 32 mmol/L (22-32); Chloride 105 mmol/L (98-107); Cholesterol 159 mg/dL (140-199); Estimated Glomerular Filt Rate > 60.0 mL/min (>60); Globulin 2.7 g/dL (1.7-4.1); Glucose 99 mg/dL (80-110); HDL Cholesterol 37 mg/dL (40-60); HEMOLYSIS < 15 (0-50); LDL Cholesterol Calculated 95 mg/dL (<100); Potassium 4.2 mmol/L (3.4-5.1); Sodium 142 mmol/L (137-145); Total Protein 6.7 g/dL (6.3-8.2); Triglycerides 137 mg/dL (35-150)
[2021-09-13 11:49] LABS: TSH w/ Reflex to FT4 1.16 uIU/mL (0.47-4.68)
== END ==
PROVIDERS: PCP Family Medicine; Referring Provider Family Medicine; Visit Provider Family Medicine
DX: E78.2 Mixed hyperlipidemia (principal); I48.91 Unspecified atrial fibrillation; I10 Essential (primary) hypertension
CPT/HCPCS: 36415; 80053; 80061; 84443; 85025

== ENCOUNTER → 2022-01-02 11:24 | Outpatient (CLI) | payer MEDICARE, OTHER, SELFPAY ==
[2022-01-02 14:09] LABS: BUN Creatinine Ratio 18.1 (6-22); Blood Urea Nitrogen 17 mg/dL (7-17); Estimated Glomerular Filt Rate > 60 mL/min (>60)
== END ==
PROVIDERS: PCP Family Medicine; Referring Provider Urology; Visit Provider Urology
DX: D17.71 Benign lipomatous neoplasm of kidney (principal)
CPT/HCPCS: 36415; 82565; 84520

== ENCOUNTER → 2022-01-14 11:17 | Outpatient (CLI) | payer MEDICARE, OTHER, SELFPAY ==
--- NOTE | 2022-01-14 11:18 | DI.CT.S_ITS ---
PROCEDURE: CT ABDOMEN WO/W CON INDICATIONS: angiomyolipoma both kidneys TECHNIQUE: Optional 5 mm thick noncontrast images acquired from the diaphragm to the iliac crests. After the administration of intravenous contrast, 5 mm thick images again acquired from the diaphragm to the iliac crests in the arterial and urographic phases. 5 mm thick coronal and sagittal reformats were then acquired. For radiation dose reduction, the following was used: automated exposure control, adjustment of mA and/or kV according to patient size. COMPARISON: Merged With [facility], CT, ABDOMEN/PELVIS WITH CONTRAST, 12/09/2016, 2:00. Merged With [facility], CT, CT ABDOMEN WO/W CON, 04/13/2018, 11:21. FINDINGS: Image quality: Excellent. Lung bases: There is dependent atelectasis bilaterally. Heart size is mildly enlarged. There is a small hiatal hernia. Genitourinary: Anteriorly within the right kidney, there is a predominantly fat density cortical mass measuring up to 1.4 x 1.3 x 1.7 cm which appears stable in size compared to the prior studies. There are internal thin septations and vessels. The findings are again consistent with an angiomyolipoma. There is an adjacent small oval lesion adjacent to its inferior margin measuring up to 1.0 x 0.8 cm in transverse dimension which demonstrates mild hypoattenuation to the kidney without definite enhancement following contrast administration compatible with a small hemorrhagic cyst. Along the anterolateral aspect of the left kidney, there is an exophytic fat density lesion measuring 1.9 x 1.4 x 2.1 cm which appears slightly increased in size compared to the prior study on which it measured approximately 1.7 x 1.4 x 1.6 cm. The finding is also consistent with an angiomyolipoma. Elsewhere in the kidneys, there are multiple additional small low-density foci which are too small to characterize and may represent small cysts or angiomyolipomas. There is no hydronephrosis. The opacified renal collecting systems demonstrate no suspicious filling defects. The visualized proximal ureters are normal in caliber. Other solid organs: Evaluation of the liver demonstrates no focal hepatic lesions. The gallbladder is surgically absent. There is mild intrahepatic biliary ductal dilatation. Extrahepatic duct appears normal in caliber. Pancreas enhances normally. No peripancreatic fat stranding or fluid collections. No pancreatic duct dilatation. The spleen is normal in size. No adrenal nodules. Peritoneum and bowel: Visualized bowel loops are normal in wall thickness and caliber. No free fluid or air. Nodes and vessels: No retroperitoneal or mesenteric adenopathy by size criteria. Aorta and inferior vena cava are normal in caliber. Bones: No suspicious bony lesions. No vertebral body compression fractures. Miscellaneous: There is a small fat-containing umbilical hernia. IMPRESSION: 1. Bilateral fat density mass lesions consistent with angiomyolipomas redemonstrated in the kidneys. There is slight interval increase in size of the left mass compared to the prior study from 2018. 2. New small adjacent lesion inferior to the right angiomyolipoma consistent with a small hemorrhagic cyst. Dictated by: Eric Lee M.D. on 01/14/2022 at 16:11 Approved by: Eric Lee M.D. on 01/14/2022 at 16:26
== END ==
PROVIDERS: PCP Family Medicine; Referring Provider Urology; Visit Provider Urology
DX: D17.71 Benign lipomatous neoplasm of kidney (principal); N28.9 Disorder of kidney and ureter, unspecified
CPT/HCPCS: 74170; Q9967

== ENCOUNTER → 2022-11-18 12:28 | Outpatient (CLI) | payer MEDICARE, OTHER, SELFPAY | PROVIDERS: PCP Family Medicine; Visit Provider Nurse Practitioner | DX: L90.0 Lichen sclerosus et atrophicus (principal); N90.89 Other specified noninflammatory disorders of vulva and perineum | CPT/HCPCS: 87070; 87205 ==

== ENCOUNTER → 2023-03-31 14:42 | Outpatient (CLI) | payer MEDICARE, OTHER, SELFPAY ==
--- NOTE | 2023-03-31 14:45 | DI.RAD.S_ITS ---
PROCEDURE: XR LUMBAR SPINE 2-3V INDICATIONS: Worsening lower back pain TECHNIQUE: 3 views of the lumbar spine were acquired. COMPARISON: None. FINDINGS: Bones: 5 [id number] vertebrae are present. Minimal left convexity curvature centered at L4-L5. No definite lumbar vertebral compression fractures identified. Moderate-severe multilevel degenerative changes with disc height loss, endplate spurring, and facet arthropathy. Soft tissues: Overlying bowel gas pattern is normal. No suspicious soft tissue calcifications. IMPRESSION: Multilevel degenerative changes of the lumbar spine. Dictated by: Junito Selby M.D. on 04/01/2023 at 8:31 Approved by: Junito Selby M.D. on 04/01/2023 at 8:35
[2023-03-31 15:53] LABS: Add Manual Diff / Slide Review NO; Basophils Absolute Auto 100 /uL (0-100); Basophils Percent Auto 0.7 % (0-2); Eosinophils Absolute Auto 300 /uL (0-450); Eosinophils Percent Auto 3.7 % (2-4); Hematocrit 40.3 % (36-46); Hemoglobin 13.8 g/dL (12.0-16.0); Lymphocytes Absolute Auto 3000 /uL (1100-4500); Mean Corpuscular HGB Conc 34.1 % (30-36); Mean Corpuscular Hemoglobin 31.8 PG (26-34); Mean Corpuscular Volume 93.1 fL (80-100); Monocytes Absolute Auto 500 /uL (0-900); Monocytes Percent Auto 5.7 % (3-14); Neutrophils Absolute Auto 4400 /uL (1500-7000); Neutrophils Percent Auto 53.9 % (50-75); Platelet Count 264 X10^3/uL (150-400); Red Blood Cell Count 4.33 X10^6/uL (4.0-5.2); Red Cell Distribution Width 13.1 % (11.6-14.8); White Blood Cell Count 8.2 X10^3/uL (4.5-11.0)
[2023-03-31 16:25] LABS: Alanine Aminotransferase 15 IU/L (<35); Albumin Globulin Ratio 1.3 (1.0-2.8); Alkaline Phosphatase 67 U/L (38-126); Aspartate Aminotransferase 21 IU/L (14-36); BUN Creatinine Ratio 18.9 (6-22); Bilirubin Total 0.3 mg/dL (0.2-1.3); Blood Urea Nitrogen 14 mg/dL (7-17); Calcium 8.8 mg/dL (8.4-10.2); Carbon Dioxide 30 mmol/L (22-32); Chloride 103 mmol/L (98-107); Estimated Glomerular Filt Rate > 60 mL/min (>60); Glucose 88 mg/dL (80-110); HEMOLYSIS < 15 (0-50); Potassium 3.5 mmol/L (3.4-5.1); Sodium 138 mmol/L (137-145)
[2023-03-31 16:53] LABS: TSH w/ Reflex to FT4 0.76 uIU/mL (0.47-4.68)
== END ==
PROVIDERS: PCP Family Medicine; Referring Provider Family Medicine; Visit Provider Family Medicine
DX: M47.816 Spondylosis without myelopathy or radiculopathy, lumbar region (principal); M54.50 Low back pain, unspecified; G30.9 Alzheimer's disease, unspecified; F02.80 Dementia in other diseases classified elsewhere, unspecified severity, without behavioral disturbance, psychotic disturbance, mood disturbance, and anxiety; F32.9 Major depressive disorder, single episode, unspecified; I48.20 Chronic atrial fibrillation, unspecified; E78.2 Mixed hyperlipidemia; I10 Essential (primary) hypertension
CPT/HCPCS: 36415; 72100; 80053; 84443; 85025

== ENCOUNTER → 2023-05-06 10:11 | Outpatient (CLI) | payer MEDICARE, OTHER, SELFPAY ==
--- NOTE | 2023-05-06 10:13 | DI.US.S_ITS ---
PROCEDURE: US RENAL COMPLETE INDICATIONS: Benign lipomatous neoplasm of kidney TECHNIQUE: Real-time scanning was performed of the kidneys and bladder, with image documentation. COMPARISON: [facility], , US RENAL COMPLETE, 09/08/2020, 14:54. FINDINGS: Kidneys: Kidneys are normal in size. Right kidney measures 10.3 cm long; left kidney measures 11.1 cm long. Right renal cortical thickness is 1.1 cm; left renal cortical thickness is 1.3 cm. Renal cortical echotexture is normal. There is mild right hydronephrosis which persists on postvoid imaging. There is a 2 mm stone within the right kidney versus tiny cyst with layering milk of calcium. Multiple echogenic lesions are again seen within the bilateral kidneys. Two new echogenic lesions are seen within the right kidney, the 1st within the mid right kidney measuring 1.1 x 0.7 x 0.6 cm in the other in the inferior right kidney measuring 0.7 x 0.7 x 1.0 cm. Other lesions are stable including a 1.1 x 0.7 x 1.0 cm lesion previously measuring 1.4 x 0.9 x 1.3 cm and a 2.0 x 2.5 x 1.3 cm, previously measuring 2.6 x 2.3 x 1.9 cm. In the left kidney, there is a 2.0 x 2.3 x 1.8 cm echogenic lesion, previously measuring 2.2 x 2.3 x 1.8 cm. Subcentimeter simple appearing cysts within the left kidney. Bladder: Pre-void bladder volume is 162 mL. Mild mobile debris is seen within the urinary bladder. Post-void residual is 190 mL, patient was unable to void. Pre-void images demonstrate no intraluminal masses or stones. On pre-void images, right ureteral jets are noted with color Doppler interrogation. Left ureteral jet is not seen (Of note, ureteral jets may not be detectable in up to 25% of cases due to insufficient differences in specific gravity between ureteral and bladder urine). Miscellaneous: No free pelvic fluid. IMPRESSION: 1. Multiple echogenic lesions within the bilateral kidneys, favored to represent angiomyolipomas. Two new lesions are seen within the right kidney as described above. 2. Mild right hydronephrosis which persists on postvoid imaging, however patient was unable to void. 3. 190 cc of postvoid residual as patient could not void. Mild mobile debris seen within the urinary bladder. 4. Possible 2 mm left renal stone versus small cyst with layering milk of calcium, favor cyst given cortical location. Dictated by: Buddy Martinez M.D. on 05/06/2023 at 15:20 Approved by: Buddy Martinez M.D. on 05/06/2023 at 15:28
== END ==
PROVIDERS: PCP Family Medicine; Referring Provider Urology; Visit Provider Urology
DX: D17.71 Benign lipomatous neoplasm of kidney (principal); N13.30 Unspecified hydronephrosis
CPT/HCPCS: 76770

== ENCOUNTER 2023-09-08 08:14 | Emergency (ER) | payer MEDICARE, OTHER, SELFPAY ==
[2023-09-08] VITALS (11 sets, daily range): BP systolic 129–158; BP diastolic 62–84; PULSE 52–59; RESP 16–26; TEMP 37; O2SAT 96–98; BMI 26.4
--- NOTE | 2023-09-08 08:31 | DI.RAD.S_ITS ---
PROCEDURE: XR CHEST 1V INDICATIONS: Chest Pain TECHNIQUE: One view of the chest was acquired. COMPARISON: [facility], CYN, XR CHEST 2V, 01/07/2020, 11:56. [facility], , CHEST 2 VIEW, 01/27/2017, 10:27. FINDINGS: Surgical changes and devices: Right upper quadrant surgical clips. Lungs and pleura: Lungs are clear. No pleural effusions or pneumothorax. Mediastinum: Mediastinal contours appear normal. Heart size is normal. Bones and chest wall: No suspicious bony lesions. Overlying soft tissues appear unremarkable. IMPRESSION: No acute cardiopulmonary abnormality is seen. Dictated by: Buddy Martinez M.D. on 09/08/2023 at 9:05 Approved by: Buddy Martinez M.D. on 09/08/2023 at 9:06
--- NOTE | 2023-09-08 08:32 | ED_ITS ---
HPI - Chest Pain General Chief Complaint: Weakness Stated Complaint: Weakness/ Headache Time Seen by Provider: 09/08/23 08:26 Source: EMS Mode of arrival: EMS Limitations: altered mental status History of Present Illness HPI narrative: 83-year-old woman with dementia comes to the ED by ambulance this morning for an episode of shaking and crying out in pain clutching her chest lasting about 1 minute. This happened about an hour prior to arrival. Her witnessed the event. She would already been up and around for the day. She would not been having any recent symptoms similar to this nor has she had any recent illness such as fever cough chest pain shortness of breath nausea vomiting or diarrhea or abdominal pain. The patient herself says have not any breakfast yet I would like to go home now. She has no recollection of the events described above. Past history is remarkable for reflux disease TIA Alzheimer's disease atrial fibrillation coronary artery disease. Home medications include diltiazem donepezil lisinopril the amantadine metronidazole. Related Data Home Medications Medication Instructions Recorded Confirmed cholecalciferol (vitamin D3) PO 10/11/19 01/10/23 Previous Rx's Medication Instructions Recorded aspirin 81 mg chewable tablet 81 mg PO QDAY ##30 03/07/17 ketoconazole 2 % topical cream 1 applic topical BID #30 grams 09/26/22 metronidazole 500 mg tablet 500 mg PO Q12H #10 tabs 11/18/22 lisinopril 2.5 mg tablet See Rx Instructions .Route 11/19/22 .COMPLEX #90 tabs diltiazem HCl 120 mg See Rx Instructions .Route 01/08/23 capsule,extended release 24 hr .COMPLEX #90 caps clobetasol 0.05 % topical cream 1 applic topical QAM AND QPM #45 01/24/23 grams memantine 5 mg tablet 5 mg PO BID #60 tabs 04/03/23 donepezil 10 mg tablet See Rx Instructions .Route 04/15/23 .COMPLEX #90 tabs Allergies Allergy/AdvReac Type Severity Reaction Status Date / Time Penicillins [PENICILLINS] Allergy Mild ITCHING Verified 03/31/23 14:10 latex [LATEX] Allergy Unknown Verified 03/31/23 14:10 shellfish derived Allergy Unknown SPOUSE Verified 03/31/23 14:10 [SHELLFISH DERIVED] STATES N/V WITH TUNA venom-honey bee Allergy Unknown Verified 03/31/23 14:10 [BEE VENOM (HONEY BEE)] seafood Allergy Unknown Uncoded 03/31/23 14:10 Patient History Medical History Alzheimer disease (~2015) Asthma (Unknown) Atrial fibrillation (~06/2015) Coronary artery disease (~2006) Diverticular disease (Unknown) External hemorrhoid GERD (gastroesophageal reflux disease) (Unknown) GI bleed (~11/2016) Hx of transient ischemic attack (TIA) (~2005) Hyperlipemia (Unknown) Hypertension (Unknown) Labial lesion Lichen sclerosus Loose stools Lower back pain Medicare annual wellness visit, subsequent Microscopic colitis (Unknown) Renal cyst (12/2016) Seborrheic keratosis Well adult exam Surgical History Hx of cholecystectomy (Unknown) Hx of hysterectomy (~1989) Hx of tonsillectomy (Unknown) Family History Father Cancer Social History Smoking Status: Never smoker Smoking Status: Never smoker Substance Use Type: does not use Exam Narrative Exam Narrative: GENERAL: Alert, cooperative and in no distress. HEAD: Atraumatic. Normocephalic. EYES: Sclera are clear without icterus. Extraocular movements are full. ENT: No rhinorrhea. Oropharynx is moist. Mouth exam is benign. NECK: Supple. Full range of motion. CARDIOVASCULAR: Normal rate and rhythm without murmur gallop or rub. RESPIRATORY: Clear to auscultation. Breath sounds equal bilaterally. No wheezes, rales, or rhonchi. GASTROINTESTINAL: Abdomen soft, mild diffuse tenderness without mass or organomegaly. No guarding or rebound tenderness. EXTREMITIES: No edema, full range of motion. No obvious trauma. BACK: Normal inspection, no CVA tenderness. NEURO: Nonfocal examination, normal speech, normal gait. Normal strength and coordination of the upper extremities. Normal strength in the lower extremities. Cranial nerves are intact specifically lower face is symmetric when she smiles. Extraocular movements are full with the exception of lateral gaze the left eye which is a baseline abnormality. SKIN: No rash or erythema of visible areas PSYCH: Normally oriented. Normal range of affect. Appropriate behavior Initial Vital Signs Initial Vital Signs: Vital Signs Pulse Rate 52 L 09/08/23 08:17 Pulse Oximetry 97 09/08/23 08:17 Course Orders Ordered: ED Orders 09/08/23 08:31 XR chest 1V Stat EKG-12 Lead Stat 09/08/23 08:35 CBC Auto Diff [Complete Blood Count AUTO DIFF] Stat CMP [Comprehensive Metabolic Panel] Stat Troponin I Stat 09/08/23 10:37 Troponin I Stat Vital Signs Vital signs: Vital Signs - 8 hr 09/08/23 08:17 09/08/23 08:18 09/08/23 08:18 Temperature Pulse Rate 52 L 53 L Respiratory Rate Blood Pressure 158/82 H Pulse Oximetry 97 97 Oxygen Delivery Method Room Air 09/08/23 08:22 09/08/23 08:30 09/08/23 08:30 Temperature 98.6 F Pulse Rate 56 L 54 L Respiratory Rate 18 Blood Pressure 158/82 H 144/74 H Pulse Oximetry 97 98 Oxygen Delivery Method Room Air Room Air 09/08/23 09:00 09/08/23 09:01 09/08/23 09:01 Temperature Pulse Rate 56 L 59 L Respiratory Rate 24 25 H Blood Pressure 142/84 H Pulse Oximetry 97 96 Oxygen Delivery Method Room Air 09/08/23 09:30 09/08/23 09:30 09/08/23 10:00 Temperature Pulse Rate 55 L 55 L Respiratory Rate 16 Blood Pressure 141/62 H Pulse Oximetry 96 97 Oxygen Delivery Method Room Air 09/08/23 10:00 09/08/23 10:30 09/08/23 10:30 Temperature Pulse Rate 55 L Respiratory Rate 26 H Blood Pressure 144/72 H 129/64 Pulse Oximetry 96 Oxygen Delivery Method Room Air MDM - Chest Pain Lab Data 09/08/23 08:35 09/08/23 08:35 Labs: Lab Results 09/08/23 09/08/23 Range/Units 08:35 10:37 WBC 7.0 (4.5-11.0) X10^3/uL RBC 4.34 (4.0-5.2) X10^6/uL Hgb 13.8 (12.0-16.0) g/dL Hct 40.8 (36-46) % MCV 94.1 (80-100) fL MCH 31.8 (26-34) PG MCHC 33.8 (30-36) % RDW 13.1 (11.6-14.8) % Plt Count 260 (150-400) X10^3/uL Neut % (Auto) 55.7 (50-75) % Lymph % (Auto) 34.1 (25-40) % [place] % (Auto) 6.0 (3-14) % Eos % (Auto) 3.5 (2-4) % Baso % (Auto) 0.7 (0-2) % Neut # (Auto) 3900 (3524-3035) /uL Lymph # (Auto) 2400 (6360-1706) /uL [place] # (Auto) 400 (0-900) /uL Eos # (Auto) 200 (0-450) /uL Baso # (Auto) 0 (0-100) /uL Sodium 138 (137-145) mmol/L Potassium 3.9 (3.4-5.1) mmol/L Chloride 105 (98-107) mmol/L Carbon Dioxide 27 (22-32) mmol/L BUN 14 (7-17) mg/dL Creatinine 0.72 (0.52-1.04) mg/dL Estimated GFR > 60 (>60) mL/min BUN/Creatinine Ratio 19.4 (6-22) Glucose 96 (80-110) mg/dL Calcium 9.1 (8.4-10.2) mg/dL Total Bilirubin 0.8 (0.2-1.3) mg/dL AST 22 (14-36) IU/L ALT 13 (<35) IU/L Alkaline Phosphatase 57 (38-126) U/L Troponin I < 0.012 < 0.012 (0.01-0.034) ng/mL Total Protein 6.7 (6.3-8.2) g/dL Albumin 3.7 (3.5-5.0) g/dL Globulin 3.0 (1.7-4.1) g/dL Albumin/Globulin Ratio 1.2 (1.0-2.8) ECG Data Interpretation: ECG obtained at 8:36 a.m. shows sinus bradycardia at 50 beats per minute with a QTC of 406. There are no acute ST or T-wave changes. This ECG is otherwise normal other than the heart rate. Repeat ECG at 10:43 a.m. shows sinus bradycardia at 55 beats per minute with a QTC of 428. This ECG is normal. MDM Narrative Medical decision making narrative: This is a well-appearing elderly woman with dementia with no complaints at all at this time. History of 1 minute of apparent chest discomfort according to . Will check troponin and 2 hour troponin an x-ray and basic labs. I do not think pulmonary embolism is likely given her normal vital signs and lack of symptoms currently and normal exam and fleeting symptoms. I do not suspect an acute neurologic event. She has a nonfocal exam right now. 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 1139 Low risk patient with negative workup. I think home disposition with careful return precautions given. Patient is entirely symptom-free throughout her ED stay. Discharge Plan Departure Patient Disposition: Home Clinical Impression: Chest pain Activity Restrictions/Additional Instructions: No dangerous cause for chest pain is identified here today. ECG and blood work are all entirely reassuring as is a chest x-ray and my physical examination. I am not exactly sure what happened today but I am quite confident that it does not represent an acute heart attack. It is possible that she has some underlying condition that needs further characterization and evaluation so I recommend you follow-up with your primary care doctor in the coming days to discuss further investigation as warranted. Of course you should return to the ED if you have new or recurrent symptoms such as severe chest pain etc.. Prescriptions: No Action aspirin 81 MG tablet,chewable 81 mg PO QDAY Qty: 30 0RF lisinopril 2.5 mg tablet See Rx Instructions .ROUTE .COMPLEX Qty: 90 3RF Dose Instruction: TAKE 1 TABLET DAILY Rx Instructions: TAKE 1 TABLET DAILY diltiazem HCl 120 mg capsule,extended release 24hr See Rx Instructions .ROUTE .COMPLEX Qty: 90 3RF Dose Instruction: TAKE 1 CAPSULE DAILY Rx Instructions: TAKE 1 CAPSULE DAILY clobetasol 0.05 % cream 1 applic topical QAM AND QPM Qty: 45 3RF Rx Instructions: Apply to painful perineal area twice daily for 2 wk periods then stop. memantine 5 mg tablet 5 mg PO BID Qty: 60 5RF Rx Instructions: Start with 1 pill in the evening advanced to twice a day after 1 week donepezil 10 mg tablet See Rx Instructions .ROUTE .COMPLEX Qty: 90 3RF Dose Instruction: TAKE 1 TABLET AT BEDTIME Rx Instructions: TAKE 1 TABLET AT BEDTIME ketoconazole 2 % cream 1 applic topical BID Qty: 30 1RF Rx Instructions: Apply intermittently for 2 weeks cholecalciferol (vitamin D3) PO metronidazole 500 mg tablet 500 mg PO Q12H Qty: 10 0RF Rx Instructions: Take 1 tab by mouth every 12 hours x5 days Referrals: Marvin Sherwood DO [Primary Care Provider] - Stand Alone Forms: Patient Portal/API
[2023-09-08 08:46] LABS: Add Manual Diff / Slide Review NO; Basophils Absolute Auto 0 /uL (0-100); Basophils Percent Auto 0.7 % (0-2); Eosinophils Absolute Auto 200 /uL (0-450); Eosinophils Percent Auto 3.5 % (2-4); Hematocrit 40.8 % (36-46); Hemoglobin 13.8 g/dL (12.0-16.0); Lymphocytes Absolute Auto 2400 /uL (1100-4500); Lymphocytes Percent Auto 34.1 % (25-40); Mean Corpuscular HGB Conc 33.8 % (30-36); Mean Corpuscular Hemoglobin 31.8 PG (26-34); Mean Corpuscular Volume 94.1 fL (80-100); Monocytes Absolute Auto 400 /uL (0-900); Neutrophils Absolute Auto 3900 /uL (1500-7000); Neutrophils Percent Auto 55.7 % (50-75); Platelet Count 260 X10^3/uL (150-400); Red Blood Cell Count 4.34 X10^6/uL (4.0-5.2); Red Cell Distribution Width 13.1 % (11.6-14.8)
--- NOTE | 2023-09-08 08:58 | PC.NURSE ---
Pt currently denies chest pain, headache, SOB, and abdominal pain upon palpation. Her states around 0730 patient was clutching her chest in pain and he called . was instructed to give patient 4x baby aspirin which he gave her. Pt does not recall this event. Pt's only complaint is tingling and twitching in her feet which she also states is normal, and chronic low back pain which has not worsened. , son, and daughter at bedside with patient.
[2023-09-08 08:59] LABS: Alanine Aminotransferase 13 IU/L (<35); Albumin 3.7 g/dL (3.5-5.0); Albumin Globulin Ratio 1.2 (1.0-2.8); Alkaline Phosphatase 57 U/L (38-126); Aspartate Aminotransferase 22 IU/L (14-36); BUN Creatinine Ratio 19.4 (6-22); Bilirubin Total 0.8 mg/dL (0.2-1.3); Blood Urea Nitrogen 14 mg/dL (7-17); Calcium 9.1 mg/dL (8.4-10.2); Carbon Dioxide 27 mmol/L (22-32); Chloride 105 mmol/L (98-107); Estimated Glomerular Filt Rate > 60 mL/min (>60); Glucose 96 mg/dL (80-110); HEMOLYSIS 26 (0-50); Potassium 3.9 mmol/L (3.4-5.1); Sodium 138 mmol/L (137-145); Total Protein 6.7 g/dL (6.3-8.2)
[2023-09-08 09:10] LABS: Troponin I < 0.012 ng/mL (0.01-0.034)
[2023-09-08 11:27] LABS: Troponin I < 0.012 ng/mL (0.01-0.034)
== END 2023-09-08 11:45 | disposition home or self-care (01) ==
PROVIDERS: Emergency Provider Family Medicine Addiction Medicine; PCP Family Medicine
DX: R07.9 Chest pain, unspecified (principal); R00.1 Bradycardia, unspecified; F03.90 Unspecified dementia, unspecified severity, without behavioral disturbance, psychotic disturbance, mood disturbance, and anxiety; Z79.899 Other long term (current) drug therapy
CPT/HCPCS: 36415; 71045; 80053; 84484; 85025; 93005; 93010; 99284

== ENCOUNTER → 2024-01-01 15:53 | Outpatient (CLI) | payer MEDICARE, OTHER, SELFPAY ==
--- NOTE | 2024-01-01 15:55 | DI.RAD.S_ITS ---
PROCEDURE: XR KNEE RT 3V INDICATIONS: Progressive weight-bearing discomfort TECHNIQUE: 3 views of the knee were acquired. COMPARISON: None. FINDINGS: Lateral view is suboptimal with overlapping of the femoral condyles, which limits evaluation. Bones: No fractures or dislocations. Moderate medial and mild lateral and patellofemoral compartment joint space narrowing and juxta-articular osteophytosis. No suspicious bony lesions. Soft tissues: No joint effusion. No suspicious soft tissue calcifications. Vascular calcifications. IMPRESSION: Lateral view is suboptimal which limits evaluation. 1. No acute bony abnormality or significant effusion. If clinical symptoms persist, consider repeat radiograph in 10-14 days versus cross-sectional imaging. 2. 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 Dictated by: Luis Enrique Chávez M.D. on 01/01/2024 at 23:29 Approved by: Luis Enrique Chávez M.D. on 01/01/2024 at 23:30
== END ==
PROVIDERS: PCP Family Medicine; Referring Provider Family Medicine; Visit Provider Family Medicine
DX: M25.561 Pain in right knee (principal); M17.11 Unilateral primary osteoarthritis, right knee
CPT/HCPCS: 73562

== ENCOUNTER → 2024-05-31 15:38 | Outpatient (CLI) | payer MEDICARE, OTHER, SELFPAY ==
--- NOTE | 2024-05-31 15:40 | DI.MRI.S_ITS ---
PROCEDURE: MR ABDOMEN RENAL PROTOCOL INDICATIONS: ANGIOMYOLIPOMA OF BOTH KIDNEYW TECHNIQUE: Coronal HASTE through abdomen and pelvis; axial 2D FLASH in- and [id number] (with and without fat saturation), and breath-hold T2 FSE from the hepatic dome to the bottom of the kidneys. Coronal HASTE MR urogram of kidneys and bladder. Dynamic coronal VIBE during IV gadolinium administration; postgadolinium axial VIBE or 2D FLASH with fat saturation from the hepatic dome through the kidneys. COMPARISON: [facility], CT, CT ABDOMEN WO/W CON, 01/14/2022, 11:28. FINDINGS: Image quality: Diagnostic Lower chest: No basal effusions. Lung bases are not well evaluated on MRI. Heart size is within normal limits Liver: Unremarkable Gallbladder and biliary system: No pathologic ductal dilation. Gallbladder is absent. Pancreas: There is a pancreatic cystic lesion at the head measuring 1 cm. Other subcentimeter cystic lesions are also seen. The pancreatic head cystic lesion was seen in 2021, but may be very slightly larger. No ductal dilation Spleen: Nonenlarged Adrenals: No discrete nodules Kidneys: Fat containing lesions in both kidneys, best seen on chemical shift imaging right lower pole lesion measures 1.5 cm, similar to prior. Left mid region lesion measures 1.6 cm, also similar to prior. Other smaller lesions are also present, without significant change. No suspicious solid renal mass elsewhere. There are small cysts also seen No hydronephrosis Vessels and lymph nodes: No abdominal aortic aneurysm. The main portal vein is patent. No pathologic lymph nodes by size criteria Bowel and peritoneum: No pathologic ascites. No small bowel obstruction. Body wall: Unremarkable Bones: There are degenerative changes. 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 No new or enlarging suspicious solid renal mass. Scattered cysts are also seen. No hydronephrosis. Pancreatic cystic lesion at the head measuring up to 1 cm. This may be slightly increased in size compared to prior imaging (0.7-0.9 cm). No ductal dilation or other high risk features identified. Consider 1 year follow-up at clinical discretion. Note is made of the patient's age. Other findings above Dictated by: Junior Torrez M.D. on 06/01/2024 at 16:23 Approved by: Junior Torrez M.D. on 06/01/2024 at 16:32
== END ==
PROVIDERS: PCP Family Medicine; Referring Provider Urology; Visit Provider Urology
DX: D17.71 Benign lipomatous neoplasm of kidney (principal); K86.2 Cyst of pancreas; N28.1 Cyst of kidney, acquired; Z90.49 Acquired absence of other specified parts of digestive tract
CPT/HCPCS: 74183; A9579

== ENCOUNTER 2025-04-10 23:05 | Emergency (ER) | payer MEDICARE, OTHER, SELFPAY ==
[2025-04-10 23:09] VITALS: PULSE 112; RESP 30; O2SAT 98
[2025-04-10 23:10] VITALS: BP 144/89; PULSE 112; RESP 25; O2SAT 98
[2025-04-10 23:12] VITALS: BP 144/89; PULSE 110; RESP 18; TEMP 35.7; O2SAT 99; BMI 24.7
--- NOTE | 2025-04-10 23:13 | EKG_ITS ---
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
--- NOTE | 2025-04-10 23:26 | DI.RAD.S_ITS ---
PROCEDURE: XR CHEST 1V INDICATIONS: nausea and vomiting TECHNIQUE: One view of the chest was acquired. COMPARISON: [facility], CYN, XR CHEST 1V, 09/08/2023, 8:55. [facility], CR, XR CHEST 2V, 01/07/2020, 11:56. FINDINGS: Surgical changes and devices: Cholecystectomy clips. Lungs and pleura: Lungs are clear. No pleural effusions or pneumothorax. Mediastinum: Mediastinal contours appear normal. Heart size is normal. Bones and chest wall: No suspicious bony lesions. Overlying soft tissues appear unremarkable. IMPRESSION: No acute cardiopulmonary abnormality is seen. Dictated by: Marcel Echols M.D. on 04/10/2025 at 23:56 Approved by: Marcel Echols M.D. on 04/10/2025 at 23:57
[2025-04-10 23:30] VITALS: BP 166/87; PULSE 93; RESP 30; O2SAT 98
[2025-04-10 23:39] LABS: Add Manual Diff / Slide Review NO; Hematocrit 43.6 % (36-46); Hemoglobin 14.8 g/dL (12.0-16.0); Lymphocytes Absolute Auto 4000 /uL (1100-4500); Mean Corpuscular HGB Conc 33.9 % (30-36); Mean Corpuscular Hemoglobin 31.4 PG (26-34); Mean Corpuscular Volume 92.6 fL (80-100); Platelet Count 267 X10^3/uL (150-400)
[2025-04-10 23:46] LABS: Alanine Aminotransferase 13 IU/L (<35); Albumin 4.3 g/dL (3.5-5.0); Albumin Globulin Ratio 1.3 (1.0-2.8); Blood Urea Nitrogen 15 mg/dL (7-17); Calcium 9.4 mg/dL (8.4-10.2); Carbon Dioxide 22 mmol/L (22-32); Chloride 107 mmol/L (98-107); Estimated Glomerular Filt Rate > 60 mL/min (>60); Globulin 3.2 g/dL (1.7-4.1); Glucose 143 mg/dL (70-99); Lactate (Lactic Acid) 1.4 mmol/L (0.7-2.1); Lipase 222 U/L (23-300); Sodium 139 mmol/L (137-145); Total Protein 7.5 g/dL (6.3-8.2)
[2025-04-10 23:47] LABS: HEMOLYSIS 96 (0-50)
[2025-04-10 23:48] LABS: Alkaline Phosphatase 76 U/L (38-126); Potassium 4.1 mmol/L (3.4-5.1)
[2025-04-10] MEDS: SODIUM CHLORIDE 0.9% 1,000 ML 1000 ML IV (23:48)
[2025-04-10 23:58] LABS: Troponin I < 0.012 ng/mL (0.01-0.034)
[2025-04-11] VITALS (9 sets, daily range): BP systolic 156–175; BP diastolic 91–108; PULSE 100–131; RESP 20–36; O2SAT 95–99
--- NOTE | 2025-04-11 00:30 | DI.CT.S_ITS ---
PROCEDURE: CT HEAD/BRAIN WO CON INDICATIONS: acute vertigo TECHNIQUE: Noncontrast 4.5 mm thick angled axial sections acquired from the foramen magnum to the vertex, with coronal and sagittal reformats. For radiation dose reduction, the following was used: automated exposure control, adjustment of mA and/or kV according to patient size. COMPARISON: [facility], CT, HEAD WITHOUT CONTRAST, 07/16/2015, 4:41. FINDINGS: Image quality: Diagnostic. CSF spaces: Basal cisterns are patent. No extra-axial fluid collections. The ventricles are symmetric in size and shape. Brain: No intracranial bleeds or mass effect. There is cerebral volume loss, with resultant ventricular and sulcal prominence. There are periventricular and deep white matter chronic small vessel ischemic changes. There is intracranial internal carotid artery atherosclerosis. Skull and face: Calvarium and visualized facial bones appear intact, without suspicious lesions. Sinuses: Visualized sinuses and mastoids are clear. IMPRESSION: No acute intracranial pathology. Dictated by: Marcel Echols M.D. on 04/11/2025 at 1:13 Approved by: Marcel Echols M.D. on 04/11/2025 at 1:14
--- NOTE | 2025-04-11 00:34 | PC.NURSE ---
TICKET PRINTER note: Attempted to ambulate patient to the BR. Patient ambulate with project development director (). When walking from the BR to patient room in front of the [facility] desk, Tech () was holding her hand, and patient said I'm feeling woozy, and felt heavy while holding patient's arm. Patient leaned against me as I held her up. I called for a wheelchair and was holding patient up while holding patient up. Immediately got patient back into bed with help from electronic techboubacar Garner and RN Lindsey Sneed
[2025-04-11 00:38] LABS: Appearance Urine UA CLEAR; Bilirubin Urine UA NEGATIVE (NEGATIVE); Color Urine UA YELLOW; Glucose Urine UA NEGATIVE (Negative); Ketones Urine UA NEGATIVE (NEGATIVE); Leukocyte Esterase Urine UA 1+ (NEGATIVE); Nitrite Urine UA NEGATIVE (Negative); Occult Blood Urine UA 1+ (Negative); Protein Urine UA NEGATIVE (Negative); Specific Gravity Urine UA 1.015 (1.000-1.035); Urobilinogen Urine UA 0.2 E.U./dL (0.2)
[2025-04-11 00:40] LABS: pH Urine UA 6.5 (4.5-8.0)
[2025-04-11 00:44] LABS: Culture Indicated Urine Specimen Cultured
--- NOTE | 2025-04-11 01:00 | ED.NAVMDI ---
HPI - Nausea/Vomiting/Diarrhea General Chief complaint: Nausea/Vomiting/Diarrhea Stated complaint: N/V Dizziness Time Seen by Provider: 04/10/25 23:10 Source: patient and EMS Mode of arrival: EMS History of Present Illness HPI Narrative: 84-year-old woman lives independently with her at home history of dementia, hypertension was doing some cleaning leaning into a closet and she stood up had severe nausea and mild vertigo.. Difficulty walking because of that. 911 was called, she was given Zofran in route to the emergency department and still feels slightly nauseated but somewhat better. States she has not had recent fever, cough, chills, not complaining of headache, abdominal pain, palpitations. Related Data Home Medications ?Medication ?Instructions ?Recorded ?Confirmed cholecalciferol (vitamin D3) PO 10/11/19 04/08/24 Previous Rx's ?Medication ?Instructions ?Recorded aspirin 81 mg chewable tablet 81 mg PO QDAY ##30 03/07/17 metronidazole 500 mg tablet 500 mg PO Q12H #10 tabs 11/18/22 lisinopril 2.5 mg tablet See Rx Instructions .Route 11/17/23 .COMPLEX #90 tabs clobetasol 0.05 % topical cream 1 applic topical QAM AND QPM #45 03/11/24 grams donepezil 10 mg tablet 10 mg PO ONCE PM #90 tabs 04/09/24 memantine 5 mg tablet 5 mg PO BID #60 tabs 11/29/24 diltiazem HCl 120 mg 120 mg PO DAILY #30 caps 03/29/25 capsule,extended release 24 hr Allergies Allergy/AdvReac Type Severity Reaction Status Date / Time Penicillins (PENICILLINS) Allergy Mild ITCHING Verified 04/08/24 16:45 latex (LATEX) Allergy Unknown Verified 04/08/24 16:45 shellfish derived (SHELLFISH Allergy Unknown SPOUSE Verified 04/08/24 16:45 DERIVED) STATES N/V WITH TUNA venom-honey bee (BEE VENOM Allergy Unknown Verified 04/08/24 16:45 (HONEY BEE)) seafood Allergy Unknown Uncoded 04/08/24 16:45 Review of Systems Review of Systems Narrative: Pertinent positive and negative findings as per HPI Patient History Medical History Right knee pain Medicare annual wellness visit, subsequent Well adult exam Lower back pain Seborrheic keratosis Loose stools Labial lesion Lichen sclerosus External hemorrhoid GERD (gastroesophageal reflux disease) (Unknown) Renal cyst (12/2016) Microscopic colitis (Unknown) Hx of transient ischemic attack (TIA) (~2005) Diverticular disease (Unknown) Asthma (Unknown) Alzheimer disease (~2015) GI bleed (~11/2016) Atrial fibrillation (~06/2015) Coronary artery disease (~2006) Hyperlipemia (Unknown) Hypertension (Unknown) Surgical History Hx of tonsillectomy (Unknown) Hx of cholecystectomy (Unknown) Hx of hysterectomy (~1989) Family History Father Cancer Exam Initial Vital Signs Initial Vital Signs: Vital Signs Temperature 96.3 F L 04/10/25 23:12 Pulse Rate 110 H 04/10/25 23:12 Respiratory Rate 18 04/10/25 23:12 Blood Pressure 144/89 H 04/10/25 23:12 Pulse Oximetry 99 04/10/25 23:12 Oxygen Delivery Method Room Air 04/10/25 23:12 General: Frail but in no acute distress. HEENT: Moist mucous membranes, normal sclera with reactive pupils, no nystagmus Respiratory: Lungs are clear to auscultation, no wheezing no rales no rhonchi. Full and symmetrical air movement Cardiac: Irregular, no murmurs appreciated Abdomen: Soft, nontender, no rebound or guarding, no flank pain Skin: Warm and dry, no rashes Neurologic: Grossly neurologically intact with no obvious asymmetries or abnormalities Extremities: No trauma, well perfused Psych: Cooperative, Course Orders Ordered: ED Orders 04/10/25 23:00 Complete Blood Count AUTO DIFF Stat Comprehensive Metabolic Panel Stat Lactate (Lactic Acid) Stat Lipase Stat Troponin I Stat 04/10/25 23:26 XR chest 1V Stat EKG-12 Lead Stat 04/11/25 00:30 CT head/brain wo con Stat 04/11/25 00:31 Urinalysis and Microscopic Stat Urine Culture Stat Discontinued Medications Sodium Chloride (Normal Saline 0.9%) 1,000 mls @ 1,000 mls/hr IV BOLUS ONE Stop: 04/11/25 00:24 Last Admin: 04/10/25 23:48 Dose: 1,000 mls/hr Documented By: VLADIMIR Meclizine HCl (Meclizine Hcl 12.5 Mg Tablet) 25 mg PO NOW ONE Stop: 04/11/25 00:31 Vital Signs Vital signs: Vital Signs - 8 hr 04/10/25 23:12 Temperature 96.3 F L Pulse Rate 110 H Respiratory Rate 18 Blood Pressure 144/89 H Pulse Oximetry 99 Oxygen Delivery Method Room Air MDM - Nausea/Vomiting/Diarrhea Lab Data 04/10/25 23:00 04/10/25 23:00 Labs: Lab Results 04/10/25 04/11/25 Range/Units 23:00 00:31 WBC 10.2 (4.5-11.0) X10^3/uL RBC 4.71 (4.0-5.2) X10^6/uL Hgb 14.8 (12.0-16.0) g/dL Hct 43.6 (36-46) % MCV 92.6 (80-100) fL MCH 31.4 (26-34) PG MCHC 33.9 (30-36) % RDW 14.0 (11.6-14.8) % Plt Count 267 (150-400) X10^3/uL Neut % (Auto) 50.9 (50-75) % Lymph % (Auto) 39.3 (25-40) % Greer % (Auto) 5.2 (3-14) % Eos % (Auto) 4.1 H (2-4) % Baso % (Auto) 0.5 (0-2) % Neut # (Auto) 5200 (5625-3334) /uL Lymph # (Auto) 4000 (1598-0429) /uL Greer # (Auto) 500 (0-900) /uL Eos # (Auto) 400 (0-450) /uL Baso # (Auto) 100 (0-100) /uL Sodium 139 (137-145) mmol/L Potassium 4.1 (3.4-5.1) mmol/L Chloride 107 (98-107) mmol/L Carbon Dioxide 22 (22-32) mmol/L BUN 15 (7-17) mg/dL Creatinine 0.63 (0.52-1.04) mg/dL Estimated GFR > 60 (>60) mL/min BUN/Creatinine Ratio 23.8 H (6-22) Glucose 143 H (70-99) mg/dL Lactate 1.4 (0.7-2.1) mmol/L Calcium 9.4 (8.4-10.2) mg/dL Total Bilirubin 0.6 (0.2-1.3) mg/dL AST 29 (14-36) IU/L ALT 13 (<35) IU/L Alkaline Phosphatase 76 (38-126) U/L Troponin I < 0.012 (0.01-0.034) ng/mL Total Protein 7.5 (6.3-8.2) g/dL Albumin 4.3 (3.5-5.0) g/dL Globulin 3.2 (1.7-4.1) g/dL Albumin/Globulin Ratio 1.3 (1.0-2.8) Lipase 222 (23-300) U/L Urine Color Yellow Urine Appearance Clear Urine pH 6.5 (4.5-8.0) Ur Specific [place] 1.015 (1.000-1.035) Urine Protein Negative (Negative) Urine Glucose (UA) Negative (Negative) g/dL Urine Ketones Negative (NEGATIVE) Urine Occult Blood 1+ H (Negative) Urine Nitrate Negative (Negative) Urine Bilirubin Negative (NEGATIVE) Urine Urobilinogen 0.2 (0.2) E.U./dL Ur Leukocyte Esterase 1+ H (NEGATIVE) Urine RBC 1-5/hpf (0-5/HPF) Urine WBC 10-30/hpf H (0-5/HPF) Ur Squamous Epith Cells 0-1 /hpf (0-5/HPF) Urine Bacteria Few (2-10) H (None) Ur Culture Indicated? Specimen cultured Vol Urine Centrifuged 10ml (spun) MDM Narrative Medical decision making narrative: CC: Nausea, vomiting, dizziness Complicating co-morbidities: Memory loss, hypertension, chronic atrial fibrillation, she is not anticoagulated Data collected from: patient, medics Medical records reviewed: Previous Gynecology, primary care and prior ER visit notes are all reviewed Differential considered: Stroke, dehydration, sepsis, acute coronary syndrome, medication side effect, benign positional vertigo, intracranial bleeding Exam documented above, pertinent findings include: Patient seems fatigued, exam is actually fairly benign aside from her atrial fibrillation in the 80-120 range. She does not have nystagmus, no positional vertigo. When she is walking she tends to favor her left knee and tends to fall forward which her states she has been doing for years. She does have a walker available at home. Poor overall insight into safe mobility Lab Test results independently reviewed as above. Pertinent findings: CBC is unremarkable Chemistries are reassuring Troponin is undetectable Urine does not suggest UTI, we will await cultures prior to any type of treatment Imaging studies independently reviewed: CT scan of the head does not show any new intracranial findings Chest x-ray shows no new findings Treatments: 1 L of fluid, oral meclizine Discussion: 84-year-old woman complaining of dizziness with no life-threatening pathology found today. With her walker she still remains unstable but her feels that she is close to her baseline. This point there was no evidence of infection, stroke, no significant medication changes, no fevers or chills. She is and remains at significant risk for falling does need to use her walker consistently but at this point there was no indication for hospitalization. We will review all findings with her Discharge Plan Departure Patient Disposition: Home Clinical Impression: Nausea, Dizziness, At high risk for falls Instructions: DI for Nausea -- Adult, DI for Dizziness-Nonvertigo Activity Restrictions/Additional Instructions: Thank you for coming in today I am sorry that you are suffering with the dizziness in the nausea. Fortunately, I did not find a life-threatening explanation for these symptoms today. There was no sign of stroke, bleeding in your head, infection, kidney failure, liver failure, heart problems or electrolyte abnormalities You were given a bit of fluid and some nausea medication and this did seem to help. You are still quite unsteady on your feet. You need to use your walker because you tend to lean forward and then start to fall forward. A fall at this point could have very serious consequences. If you find that you are getting worse or develop any new symptoms, please feel free to return to the emergency department for further evaluation. Prescriptions: No Action aspirin 81 MG tablet,chewable 81 mg PO QDAY Qty: 30 0RF lisinopril 2.5 mg tablet See Rx Instructions .ROUTE .COMPLEX Qty: 90 3RF Dose Instruction: TAKE 1 TABLET DAILY Rx Instructions: TAKE 1 TABLET DAILY donepezil 10 mg tablet 10 mg PO ONCE PM Qty: 90 3RF memantine 5 mg tablet 5 mg PO BID Qty: 60 5RF Rx Instructions: Start with 1 pill in the evening advanced to twice a day after 1 week diltiazem HCl 120 mg capsule,extended release 24hr 120 mg PO DAILY Qty: 30 0RF clobetasol 0.05 % cream 1 applic topical QAM AND QPM Qty: 45 6RF cholecalciferol (vitamin D3) PO metronidazole 500 mg tablet 500 mg PO Q12H Qty: 10 0RF Rx Instructions: Take 1 tab by mouth every 12 hours x5 days Referrals: Marvin Sherwood DO [Primary Care Provider, Family Practice] Stand Alone Forms: Patient Portal/API
[2025-04-11] MEDS: MECLIZINE HCL 12.5 MG TABLET 25 MG PO (01:28)
== END 2025-04-11 02:00 | disposition home or self-care (01) ==
PROVIDERS: Emergency Provider Emergency Medicine; PCP Family Medicine
DX: R42 Dizziness and giddiness (principal); R11.0 Nausea; Z91.81 History of falling
CPT/HCPCS: 36415; 70450; 71045; 80053; 81001; 83605; 83690; 84484; 85025; 87086; 93005; 96360; 96361; 99284

== ENCOUNTER → 2025-08-05 17:11 | Outpatient (CLI) | payer MEDICARE, OTHER, SELFPAY ==
--- NOTE | 2025-08-05 17:12 | DI.MRI.S_ITS ---
PROCEDURE: MR ABDOMEN RENAL PROTOCOL INDICATIONS: Benign lipomatous neoplasm of kidney TECHNIQUE: Coronal HASTE through abdomen and pelvis; axial 2D FLASH in- and [id number] (with and without fat saturation), and breath-hold T2 FSE from the hepatic dome to the bottom of the kidneys. Coronal HASTE MR urogram of kidneys and bladder. Dynamic coronal VIBE during IV gadolinium administration; postgadolinium axial VIBE or 2D FLASH with fat saturation from the hepatic dome through the kidneys. COMPARISON: [facility], , MR ABDOMEN RENAL PROTOCOL, 05/31/2024, 15:51. FINDINGS: Image quality: Motion degraded Lower chest: Lung bases appear unremarkable. Liver: Small cysts. No suspicious solid lesion. Gallbladder and biliary system: Nondilated biliary system. Pancreas: Pancreatic head 1 cm cystic lesion again seen, with small septation. No enhancing soft tissue nodule or ductal dilation. This is stable. Spleen: Nonenlarged Adrenals: No discrete nodules Kidneys: Multiple renal cysts are present. Fat containing renal lesions again seen measuring up to 1.6 cm in left mid kidney (15/48) and 1.5 cm in the right lower kidney (15/60). Other smaller lesions are also again seen No suspicious enhancing soft tissue nodule Vessels and lymph nodes: No lymph nodes enlarged by size criteria. The main portal vein is patent. No abdominal aneurysm. Bowel and peritoneum: No bowel obstruction. No pathologic ascites. Colonic diverticula are seen Body wall: Unremarkable Bones: No aggressive appearing osseous abnormality. 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 Stable pancreatic head cystic lesion measuring up to 1 cm, possibly IPMN or other cystic neoplasm. No high risk features. Consider continued 1-2 year follow-up. Other findings above. Dictated by: Junior Torrez M.D. on 08/08/2025 at 10:01 Approved by: Junior Torrez M.D. on 08/08/2025 at 10:09
== END ==
PROVIDERS: PCP Family Medicine; Referring Provider Urology; Visit Provider Urology
DX: D17.71 Benign lipomatous neoplasm of kidney (principal); N28.1 Cyst of kidney, acquired; K86.9 Disease of pancreas, unspecified
CPT/HCPCS: 74183; A9579